=== PATIENT | male | born 1950 | race Caucasian/White ===

== ENCOUNTER → 2017-10-06 | Emergency (ER) | payer OTHER ==
[~2017-10-06] VITALS: Ht 182.9 cm; Wt 79.4 kg
[~2017-10-06] MED LIST: CIPRO100 MG
== END | disposition home or self-care (01) ==
LOC: ER 08:27
DX: J06.9 Acute upper respiratory infection, unspecified (principal); B34.9 Viral infection, unspecified

== ENCOUNTER 2018-04-08 07:35 | Outpatient (CLI) | payer OTHER | END 2018-04-08 07:37 | disposition home or self-care (01) | LOC: SONOGRAMA 07:35 | DX: E04.2 Nontoxic multinodular goiter (principal) ==